=== PATIENT | male | born 1990 ===

== ENCOUNTER 2021-03-07 21:48 | Emergency (ER) | payer SELFPAY ==
[2021-03-08 02:16] LABS: Urine Blood 3+ (Negative); Urine Glucose Negative (Negative); Urine Protein Negative (Negative)
[2021-03-08] MEDS ORDERED: MORPHINE 4 MG/ML SYR ONE (02:18)
[2021-03-08] MEDS ORDERED: ONDANSETRON 4 MG/2 ML VIAL ONE (02:18)
[2021-03-08] MEDS ORDERED: NA CHLORIDE 0.9% 1,000 ML ONE (02:18)
[2021-03-08 02:36] LABS: Absolute Lymphocytes (CBC) 1.6 K/uL (0.7-4.9); Basophils % 0.3 % (0-1.3); Hematocrit 43.9 % (39.6-49.0); Lymphocytes % 21.7 % (15.3-44.8); MPV 8.9 fL (7.6-11.3); RBC Red Blood Cell Count 4.94 M/uL (4.33-5.43)
[2021-03-08 02:46] LABS: ALT/SGPT 26 U/L (12-78); AST/SGOT 21 U/L (15-37); Albumin 4.2 g/dL (3.4-5.0); Alkaline Phosphatase 105 U/L (45-117); BUN Blood Urea Nitrogen 15 mg/dL (7-18); Bicarbonate 26 mmol/L (21-32); Bilirubin Direct < 0.1 mg/dL (0-0.2); Bilirubin Total 0.4 mg/dL (0.2-1.0); Glucose Level 120 mg/dL (74-106); Lipase 112 U/L (73-393); Potassium 3.6 mmol/L (3.5-5.1); Protein, Total 8.3 g/dL (6.4-8.2); Sodium Level 139 mmol/L (136-145)
[2021-03-08] MEDS ORDERED: CEFTRIAXONE/SWI 1gm 1 GM/10 ML SYR ONE (03:03)
[2021-03-08 03:30] LABS: Urine Bacteria <20 /HPF (NONE SEEN); Urine RBC >50 /HPF (NONE SEEN)
--- NOTE | 2021-03-08 03:45 | ER ---
Nurse's Notes [facility] Name: Stanislav Bower Age: 30 yrs Sex: Male : 1990 Arrival Date: 03/07/2021 Time: 21:51 Bed 24 Private MD: Diagnosis: Urinary calculus, unspecified-right ureter 4MM Presentation: 03/07 22:44 Chief complaint: Patient states: pain on right side of abdomen that started tonight at tl1 7pm and it penn when urinating. Denies nausea or vomiting. Coronavirus screen: Client denies travel out of the [place] in the last 14 days. Ebola Screen: Patient negative for fever greater than or equal to 101.5 degrees Fahrenheit, and additional compatible Ebola Virus Disease symptoms Patient denies exposure to infectious person. Patient denies travel to an Ebola-affected area in the 21 days before illness onset. Initial Sepsis Screen: Does the patient meet any 2 criteria? No. Patient's initial sepsis screen is negative. Does the patient have a suspected source of infection? No. Patient's initial sepsis screen is negative. Risk Assessment: Do you want to hurt yourself or someone else? Patient reports no desire to harm self or others. Onset of symptoms was March 07, 2021. 22:44 Method Of Arrival: Ambulatory tl1 22:44 Acuity: ARPIT 3 tl1 Historical: - Allergies: 22:45 No Known Allergies; tl1 - Home Meds: 22:45 None [Active]; tl1 - PMHx: 22:45 None; tl1 - PSHx: 22:45 None; tl1 - Immunization history:: Adult Immunizations unknown. - Social history:: Smoking status: Patient denies any tobacco usage or history of. Patient/guardian denies using alcohol, street drugs. - Family history:: not pertinent. Screenin/29 02:00 Abuse screen: Denies threats or abuse. Nutritional screening: No deficits noted. em Tuberculosis screening: No symptoms or risk factors identified. Fall Risk None identified. Assessment: 02:00 General: Appears in no apparent distress. uncomfortable, Behavior is calm, cooperative, em appropriate for age, Denies fever. Pain: Complains of pain in right lower quadrant Pain currently is 7 out of 10 on a pain scale. Neuro: Level of Consciousness is awake, alert, obeys commands, Oriented to person, place, time, situation. Cardiovascular: Capillary refill < 3 seconds Patient's skin is warm and dry. Respiratory: Airway is patent Respiratory effort is even, unlabored, Respiratory pattern is regular, symmetrical. GI: Abdomen is flat, Abd is soft and non tender X 4 quads. Patient currently denies nausea, vomiting. : Denies burning with urination. Derm: Skin is intact, is healthy with good turgor, Skin is pink, warm \T\ dry. Musculoskeletal: Capillary refill < 3 seconds, Range of motion: intact in all extremities. 02:53 Reassessment: Patient appears in no apparent distress at this time. Patient and/or em family updated on plan of care and expected duration. Pain level reassessed. Patient is alert, oriented x 3, equal unlabored respirations, skin warm/dry/pink. Patient states feeling better. Patient states symptoms have improved. 03:58 Reassessment: Patient appears in no apparent distress at this time. Patient and/or em family updated on plan of care and expected duration. Pain level reassessed. Patient is alert, oriented x 3, equal unlabored respirations, skin warm/dry/pink. Vital Signs: 03/07 22:46 BP 129 / 78; Pulse 76; Resp 17; Temp 98.3; Pulse Ox 99% on R/A; Weight 81.65 kg; Height tl1 5 ft. 8 in. (172.72 cm); Pain 4/10; 03/08 02:52 BP 132 / 87; Pulse 78; Resp 15; Pulse Ox 99% on R/A; Pain 4/10; em 03:59 BP 125 / 73; Pulse 73; Resp 16; Pulse Ox 99% on R/A; Pain 5/10; em 03/07 22:46 Body Mass Index 27.37 (81.65 kg, 172.72 cm) tl1 ED Course: 03/07 21:51 Patient arrived in ED. bp1 22:45 Triage completed. tl1 22:48 Arm band placed on right wrist. tl1 03/08 01:39 Kenton Blackwood, VONNIE is Primary Nurse. em 01:43 Yung Gibbons MD is Attending Physician. ma2 02:00 Patient has correct armband on for positive identification. Bed in low position. Pulse em ox on. NIBP on. 02:22 CT Stone Protocol In Process Unspecified. EDMS 03:44 Fam Little MD is Referral Physician. ma2 03:58 No provider procedures requiring assistance completed. IV discontinued, intact, em bleeding controlled, No redness/swelling at site. Pressure dressing applied. Administered Medications: 02:07 Drug: NS 0.9% 1000 ml Route: IV; Rate: 1000 ml; Site: right antecubital; em 03:59 Follow up: IV Status: Completed infusion; IV Intake: 1000ml em 02:07 Drug: Zofran (Ondansetron) 4 mg Route: IVP; Site: right antecubital; em 02:51 Follow up: Response: No adverse reaction em 02:07 Drug: morphine 4 mg Route: IVP; Site: right antecubital; em 02:51 Follow up: Response: No adverse reaction; Marked relief of symptoms; Pain is decreased; em RASS: Alert and Calm (0) 03:44 Not Given (Physician Discretion): Rocephin (cefTRIAXone) 1 grams IV at calculated rate em once; Given slow IV push per pharmacy instructions 03:50 Drug: Ketorolac 30 mg Route: IVP; Site: right antecubital; em 03:58 Follow up: Response: Medication administered at discharge. em Intake: 03:59 IV: 1000ml; Total: 1000ml. em Outcome: 03:44 Discharge ordered by . ma2 03:58 Discharged to home ambulatory. em 03:58 Condition: improved 03:58 Discharge instructions given to patient, Instructed on discharge instructions, follow up and referral plans. medication usage, Demonstrated understanding of instructions, follow-up care, medications, Prescriptions given X 3. 03:59 Patient left the ED. em Signatures: Dispatcher [employer] EDMS Kenton Blackwood, RN RN em Fawn Galeana RN RN tl1 Yung Gibbons MD MD ma2 Dominga Pereira bp1
--- NOTE | 2021-03-08 03:45 | EDPHYS ---
Physician Documentation [facility] Name: Stanislav Bower Age: 30 yrs Sex: Male : 1990 Arrival Date: 03/07/2021 Time: 21:51 Bed 24 Private MD: ED Physician Yung Gibbons HPI: 03/08 01:48 This 30 yrs old Male presents to ER via Ambulatory with complaints of Flank Pain, ma2 Abdominal Pain. 01:48 The patient complains of pain in the right low back. Associated signs and symptoms: ma2 Pertinent negatives: fever, hematuria, pain radiating to the lower extremities. 01:48 Severity of pain: At its worst the pain was moderate in the emergency department the ma2 pain is unchanged. The patient has not experienced similar symptoms in the past. Historical: - Allergies: 03/07 22:45 No Known Allergies; tl1 - Home Meds: 22:45 None [Active]; tl1 - PMHx: 22:45 None; tl1 - PSHx: 22:45 None; tl1 - Immunization history:: Adult Immunizations unknown. - Social history:: Smoking status: Patient denies any tobacco usage or history of. Patient/guardian denies using alcohol, street drugs. - Family history:: not pertinent. ROS: 03/08 01:48 Constitutional: Negative for fever, chills, and weight loss. ma2 All other systems are negative. Exam: 01:48 Constitutional: This is a well developed, well nourished patient who is awake, alert, ma2 and in no acute distress. Neck: Trachea midline, no thyromegaly or masses palpated, and no cervical lymphadenopathy. Supple, full range of motion without nuchal rigidity, or vertebral point tenderness. No Meningismus. Chest/axilla: Normal chest wall appearance and motion. Nontender with no deformity. No lesions are appreciated. Cardiovascular: Regular rate and rhythm with a normal S1 and S2. No gallops, murmurs, or rubs. Normal PMI, no JVD. No pulse deficits. Respiratory: Lungs have equal breath sounds bilaterally, clear to auscultation and percussion. No rales, rhonchi or wheezes noted. No increased work of breathing, no retractions or nasal flaring. Abdomen/GI: Soft, non-tender, with normal bowel sounds. No distension or tympany. No guarding or rebound. No evidence of tenderness throughout. Skin: Warm, dry with normal turgor. Normal color with no rashes, no lesions, and no evidence of cellulitis. MS/ Extremity: Pulses equal, no cyanosis. Neurovascular intact. Full, normal range of motion. Neuro: Awake and alert, GCS 15, oriented to person, place, time, and situation. Cranial nerves II-XII grossly intact. Motor strength 5/5 in all extremities. Sensory grossly intact. Cerebellar exam normal. Normal gait. Vital Signs: 03/07 22:46 BP 129 / 78; Pulse 76; Resp 17; Temp 98.3; Pulse Ox 99% on R/A; Weight 81.65 kg; Height tl1 5 ft. 8 in. (172.72 cm); Pain 4/10; 03/08 02:52 BP 132 / 87; Pulse 78; Resp 15; Pulse Ox 99% on R/A; Pain 4/10; em 03:59 BP 125 / 73; Pulse 73; Resp 16; Pulse Ox 99% on R/A; Pain 5/10; em 03/07 22:46 Body Mass Index 27.37 (81.65 kg, 172.72 cm) tl1 MDM: 01:44 Patient medically screened. fl2 01:48 Differential diagnosis: pyelonephritis, UTI, pancreatitis. [facility] 03:43 Data reviewed: vital signs, nurses notes. Counseling: I had a detailed discussion with [facility] the patient and/or guardian regarding: the historical points, exam findings, and any diagnostic results supporting the discharge/admit diagnosis, the presence of at least one elevated blood pressure reading (>120/80) during this emergency department visit, the need for outpatient follow up. Response to treatment: the patient's symptoms have markedly improved after treatment. 03/08 01:48 Order name: Basic Metabolic Panel [facility] 03/08 01:48 Order name: CBC with Diff [facility] 03/08 01:48 Order name: Hepatic Function [facility] 03/08 01:48 Order name: Lipase [facility] 03/08 01:48 Order name: Urine Microscopic Only; Complete Time: 03:38 [facility] 03/08 01:48 Order name: Basic Metabolic Panel; Complete Time: 03:07 EDMS 03/08 01:48 Order name: CT Stone Protocol [facility] 03/08 01:49 Order name: CBC with Automated Diff; Complete Time: 03:07 EDMS 03/08 01:49 Order name: Liver (Hepatic) Function; Complete Time: 03:07 EDMS 03/08 01:49 Order name: Lipase; Complete Time: 03:07 EDMS 03/08 02:16 Order name: Urine Dipstick-Ancillary; Complete Time: 03:07 [facility] 03/08 01:44 Order name: Urine Dipstick-Ancillary (obtain specimen); Complete Time: 02:10 fl2 03/08 01:48 Order name: IV Saline Lock; Complete Time: 02:07 fl2 03/08 01:48 Order name: NPO; Complete Time: 02:07 fl2 Administered Medications: 02:07 Drug: NS 0.9% 1000 ml Route: IV; Rate: 1000 ml; Site: right antecubital; em 03:59 Follow up: IV Status: Completed infusion; IV Intake: 1000ml em 02:07 Drug: Zofran (Ondansetron) 4 mg Route: IVP; Site: right antecubital; em 02:51 Follow up: Response: No adverse reaction em 02:07 Drug: morphine 4 mg Route: IVP; Site: right antecubital; em 02:51 Follow up: Response: No adverse reaction; Marked relief of symptoms; Pain is decreased; em RASS: Alert and Calm (0) 03:44 Not Given (Physician Discretion): Rocephin (cefTRIAXone) 1 grams IV at calculated rate em once; Given slow IV push per pharmacy instructions 03:50 Drug: Ketorolac 30 mg Route: IVP; Site: right antecubital; em 03:58 Follow up: Response: Medication administered at discharge. em Disposition Summary: 03/08/21 03:44 Discharge Ordered Location: Home ma2 Condition: Stable ma2 Diagnosis - Urinary calculus, unspecified - right ureter 4MM ma2 Followup: ma2 - With: Fam Little MD - When: Tomorrow - Reason: If symptoms return Discharge Instructions: - Discharge Summary Sheet ma2 - Kidney Stones ma2 - Kidney Stones, [id number] ma2 Forms: - Medication Reconciliation Form ma2 - Thank You Letter ma2 - Antibiotic Education ma2 - Prescription Opioid Use ma2 - Work release form em Prescriptions: - Flomax 0.4 mg Oral capsule - take 1 capsule by ORAL route once daily 1/2 hour following the same meal each ma2 day; 30 capsule; Refills: 0, Product Selection Permitted - Zofran 4 mg Oral Tablet - take 1 tablet by ORAL route every 12 hours As needed; 20 tablet; Refills: 0, ma2 Product Selection Permitted - Diclofenac Sodium 75 mg Oral Tablet Sustained Release - take 1 tablet by ORAL route 2 times per day; 30 tablet; Refills: 0, Product ma2 Selection Permitted Signatures: Dispatcher [employer] Kenton Bailey, RN Fawn Mar RN RN tl1 Yung Gibbons MD MD ma2
[2021-03-08] MEDS ORDERED: KETOROLAC 30 MG/ML INJ ONE (04:08)
--- NOTE | 2021-03-08 11:30 | RAD REPORT ---
EXAM DESCRIPTION: CT - Stone Protocol - 03/08/2021 6:25 am CLINICAL HISTORY: The patient is 30 years old and is Male; right lower abd pain and flank;Abd pain TECHNIQUE: Axial computed tomography images of the abdomen and pelvis without intravenous contrast. Sagittal and coronal reformatted images were created and reviewed. This CT exam was performed usi ng one or more of the following dose reduction techniques: automated exposure control, adjustment o f the mA and/or kV according to patient size, and/or use of iterative reconstruction technique. COMPARISON: No relevant prior studies available. FINDINGS: Lung bases: Unremarkable. No mass. No consolidation. ABDOMEN: Liver: Unremarkable. Gallbladder and bile ducts: Unremarkable. No calcified stones. No ductal dilation. Pancreas: Unremarkable. No ductal dilation. Spleen: Unremarkable. No splenomegaly. Adrenals: Unremarkable. No mass. Kidneys and ureters: 4 mm stone in the bladder near the right UVJ. Mild right hydroureteronephro sis. Stomach and bowel: Unremarkable. No obstruction. No mucosal thickening. PELVIS: Appendix: No findings to suggest acute appendicitis. Bladder: Unremarkable. No stones. Reproductive: Unremarkable as visualized. ABDOMEN and PELVIS: Intraperitoneal space: Unremarkable. No free air. No significant fluid collection. Bones/joints: No acute fracture. No dislocation. Soft tissues: Unremarkable. Vasculature: Unremarkable. No abdominal aortic aneurysm. Lymph nodes: Unremarkable. No enlarged lymph nodes. IMPRESSION: No acute findings in the abdomen or pelvis. Electronically signed by: Grant Sánchez MD 03/08/2021 3:16 AM CDT Due to temporary technical issues with the PACS/Fluency reporting system, reports are being signed by the in house radiologist without review as a courtesy to ensure prompt reporting. The interpreting r adiologist is fully responsible for the content of the report.
[2021-03-08 18:48] VITALS: TEMP 98.3; O2SAT 99
[2021-03-08 18:52] VITALS: BP 125/73
== END 2021-03-08 03:59 | disposition home or self-care (01) ==
LOC: ER 21:48
DX: N20.1 Calculus of ureter (principal)
CPT/HCPCS: 36415; 74176; 76377; 80048; 80076; 81003; 81015; 83690; 85025; 96361; 96374; 96375; 99284; J0696; J2405; J7030